=== PATIENT | male | born 1980 | race Two or more races ===

== ENCOUNTER 2016-06-26 11:58 | Emergency (ER) | payer MEDICAID ==
[~2016-06-26] VITALS: Ht 170.2 cm; Wt 91.2 kg
[2016-06-26 12:26] VITALS: BP 130/95
== END 2016-06-26 12:48 | disposition home or self-care (01) ==
LOC: ER 11:58
DX: J45.909 Unspecified asthma, uncomplicated (principal); M54.5 Low back pain; G89.29 Other chronic pain; Z76.0 Encounter for issue of repeat prescription; F17.210 Nicotine dependence, cigarettes, uncomplicated

== ENCOUNTER 2016-07-24 13:39 | Emergency (ER) | payer MEDICAID ==
[~2016-07-24] VITALS: Ht 170.2 cm; Wt 86.2 kg
[2016-07-24 14:00] VITALS: BP 143/92
== END 2016-07-24 16:00 | disposition left against medical advice (07) ==
LOC: ER 13:42
DX: R42 Dizziness and giddiness (principal); Z53.21 Procedure and treatment not carried out due to patient leaving prior to being seen by health care provider
CPT/HCPCS: 93005

== ENCOUNTER 2016-12-02 11:37 | Emergency (ER) | payer MEDICAID ==
[~2016-12-02] VITALS: Ht 170.2 cm; Wt 83.9 kg
[2016-12-02 12:13] VITALS: BP 117/88
== END 2016-12-02 12:28 | disposition home or self-care (01) ==
LOC: ER 11:37
DX: J45.909 Unspecified asthma, uncomplicated (principal); M54.5 Low back pain; G89.29 Other chronic pain; Z76.0 Encounter for issue of repeat prescription; F17.210 Nicotine dependence, cigarettes, uncomplicated

== ENCOUNTER 2018-01-09 19:36 | Emergency (ER) | payer SELFPAY ==
[~2018-01-09] VITALS: Ht 167.6 cm; Wt 68.0 kg
[2018-01-10 00:04] VITALS: BP 121/90
[2018-01-10] MEDS ORDERED: HYDROcodone-ACET 10/325MG TAB PO ONE (01:00)
== END 2018-01-10 00:19 | disposition home or self-care (01) ==
LOC: ER 19:36
DX: S33.5XXA Sprain of ligaments of lumbar spine, initial encounter (principal); G89.29 Other chronic pain; M79.1 Myalgia; F17.210 Nicotine dependence, cigarettes, uncomplicated; X58.XXXA Exposure to other specified factors, initial encounter; Y93.89 Activity, other specified; Y99.8 Other external cause status; Y92.89 Other specified places as the place of occurrence of the external cause
CPT/HCPCS: 72100

== ENCOUNTER 2018-05-05 20:20 | Emergency (ER) | payer MEDICAID ==
[~2018-05-05] VITALS: Ht 170.2 cm; Wt 86.2 kg
[2018-05-05 20:43] VITALS: BP 134/90
[2018-05-05] MEDS ORDERED: IPRATROPIUM BROM 0.5 MG/2.5ML INH SOL NEB ONE (23:30)
[2018-05-05] MEDS ORDERED: ALBUTEROL SULF 2.5 MG/0.5ML(0.5%) NEB SOLN NEB ONE (23:30)
== END 2018-05-06 00:37 | disposition home or self-care (01) ==
LOC: ER 20:20
DX: J45.909 Unspecified asthma, uncomplicated (principal); M19.042 Primary osteoarthritis, left hand; M19.041 Primary osteoarthritis, right hand
CPT/HCPCS: 94640; 99283; J7611; J7644